=== PATIENT | female | born 1940 | race Caucasian/White ===

== ENCOUNTER 2022-05-27 06:31 | Day surgery (SDC) | payer OTHER ==
[~2022-05-27] VITALS: Ht 165.1 cm; Wt 73.9 kg
[~2022-05-27 06:31] MED LIST: LOSARTAN POTASS50 MG PO; PEPCID AC20 MG PO; PRAVASTATIN SOD40 MG PO
== END 2022-05-27 12:35 | disposition home or self-care (01) ==
LOC: CIR.AMB 06:31
PROVIDERS: ATTEND Otolaryngology Otology & Neurotology
DX: H66.91 Otitis media, unspecified, right ear (principal); I10 Essential (primary) hypertension; E78.5 Hyperlipidemia, unspecified; E03.9 Hypothyroidism, unspecified; Z88.6 Allergy status to analgesic agent; Z20.822 Contact with and (suspected) exposure to COVID-19